=== PATIENT | female | born 1975 ===

== ENCOUNTER 2020-07-19 13:45 | Outpatient (CLI) | payer OTHER | END 2020-07-19 13:59 | disposition home or self-care (01) | LOC: RAD 13:45 | PROVIDERS: ATTEND Neurological Surgery | DX: M19.042 Primary osteoarthritis, left hand (principal); M47.812 Spondylosis without myelopathy or radiculopathy, cervical region; L93.0 Discoid lupus erythematosus; M19.049 Primary osteoarthritis, unspecified hand; M06.9 Rheumatoid arthritis, unspecified; M19.041 Primary osteoarthritis, right hand ==